=== PATIENT | male | born 1990 | race Caucasian/White ===

== ENCOUNTER 2016-05-05 18:07 | Emergency (ER) | payer BC, OTHER ==
[~2016-05-05] VITALS: Ht 193 cm; Wt 103.1 kg
[2016-05-05 18:18] VITALS: TEMP 37; Ht 193 cm; Wt 103.1 kg
[2016-05-05] MEDS ORDERED: XYLOCAINE 1%/SOD BICARB 20 ML VIAL INFIL ONE (18:45)
[2016-05-05] MEDS ORDERED: SULF800T23 PO (19:11)
[2016-05-05] MEDS ORDERED: CEPH500C2 PO (19:11)
--- NOTE | 2016-05-05 19:11 | EMERGENCY ROOM VISIT NOTE ---
ED Visit Note First contact with patient: 18:23 CHIEF COMPLAINT: Painful lump in the right suprapubic region times one to 2 days HISTORY OF PRESENT ILLNESS: Patient is an otherwise healthy 25-year-old white male who presents to the emergency department accompanied by his girlfriend for evaluation of a painful lump that he noticed in the right suprapubic region yesterday. He states that he has some soreness in the area and initially thought that he had an ingrown hair. He then noticed a hard, tender lump. He was doing some reading on the Internet and thought that he might have a hernia. The area has become red and swollen. It radiates discomfort to his lower abdomen and his right inner thigh. He denies any drainage or discharge from the area. No difficulty urinating or moving his bowels. He denies any fever. No prior history of skin infections or abscesses. REVIEW OF SYSTEMS: Review of systems as per HPI. All other systems reviewed were negative. At least 6 systems reviewed. PMH: Electronic medical records are reviewed and summarized as above/below. See Problem List. His tetanus is up-to-date. SOCIAL HISTORY: Patient lives at home with his girlfriend and daughter. Smokes one pack of cigarettes daily.. PHYSICAL EXAM: Vital Signs: Reviewed Nurse's notes. CONSTITUTIONAL: Patient is a well-appearing 25-year-old white male who is awake and alert and in no acute distress. INTEGUMENTARY: There is an indurated area in the right suprapubic area which measures about 2 x 5 cm. It is erythematous, indurated, with central fluctuance.. No pointing or drainage. There is a zone of inflammation around it buy no lymphangitis. EMERGENCY DEPARTMENT COURSE: Patient was seen and assessed as above. His old records were reviewed. He has a small, localized subcutaneous abscess in the right suprapubic region. Differential diagnoses include abscess, sebaceous cyst , lipoma, and others. He certainly does not appear to have any groin or inguinal involvement right into the perineal area, involving the penis or the scrotum. I&D procedure was discussed with the patient and he was agreeable to proceed. I&D was performed by Hilario Villalba PA-C. Please refer to his separate dictation for procedure note. Patient tolerated the procedure well. Culture was sent and is pending. He will be placed on Keflex and Bactrim pending culture results. Wound care measures were discussed. The patient was discharged home into the care of his girlfriend in good condition. He rated his discomfort a 2/10 at discharge. Current/Historical Medications Scheduled Cephalexin Monohydrate (Keflex), 500 MG PO QID Sulfa/Trimethoprim (Bactrim Ds 800MG/160MG), 1 TAB PO BID Allergies Uncoded Allergies: NKDA (Allergy, Unknown, 03/29/02) Vital Signs Date Time Temp Pulse Resp B/P Pulse Ox O2 Delivery O2 Flow Rate FiO2 05/05/16 19:53 71 16 146/83 97 Room Air 05/05/16 18:18 37.0 66 18 149/91 99 Room Air Departure Information Impression Primary Impression: Skin abscess Prescriptions Cephalexin Monohydrate (KEFLEX) 500 Mg Cap 500 MG PO QID for 7 Days, #28 CAP Prov: Pepper Lujan PA 05/05/16 Sulfa/Trimethoprim (Bactrim Ds 800MG/160MG) Tab 1 TAB PO BID for 7 Days, #14 TAB Prov: Pepper Lujan PA 05/05/16 Referrals No Doctor, Assigned (PCP) Patient Instructions My [facility] Additional Instructions Cephalexin(Keflex) 500mg: Take one pill four times daily for 7 days for your skin infection. All antibiotics can cause diarrhea. If this occurs and you feel worse or it does not resolve in 1-2 days follow up with your doctor or return to the Emergency Department as this could be signs of serious underlying problems. Any medication can cause an allergic reaction, stop the pills immediately and return to the ER for rash, hives, breathing difficulties, or swelling. Trimethoprim-Sulfamethoxazole(Bactrim DS): Take one pill twice daily for 7 days for your skin infection. All antibiotics can cause diarrhea. If this occurs and you feel worse or it does not resolve in 1-2 days follow up with your doctor or return to the Emergency Department as this could be signs of serious underlying problems. Any medication can cause an allergic reaction, stop the pills immediately and return to the ER for rash, hives, breathing difficulties, or swelling. Ibuprofen(Motrin, Advil) may be used for fever or pain. Use 600mg every six hours as needed. Take with food. Avoid using more than 2400mg in a 24 hour period. Do not use 2400mg per day for more than three consecutive days without physician direction. Prolonged inappropriate use can lead to stomach upset or ulcers. (AND/OR) Acetaminophen(Tylenol) may be used for fever or pain. Use 1000mg every six hours as needed. Avoid using more than 3000mg in a 24 hour period. Warm compresses to the affected area 4 times daily for 15-20 minutes. Dressing changes daily, more often if it becomes saturated or soiled. May shower, became for to not remove the packing material when bathing or when changing the dressing. Rest and drink plenty of fluids. Continue current medications. Return to the ER in 48 hours for packing removal, immediately for severe pain, persistent fevers, spreading redness, or any worsening of your condition. Follow up with your primary physician within 2-3 days for a recheck of the current condition.
--- NOTE | 2016-05-05 19:16 | EMERGENCY ROOM VISIT NOTE ---
ED Visit Note 25-year-old male who I was asked by Althea Morales PA-C to perform an I&D procedure as she is unable to do so currently because she is currently wearing a splint, and unable to perform septic technique. Please see her dictation for further workup and final disposition. PROCEDURE NOTE: Patient provided verbal consent for I&D procedure under local anesthesia. Using buffered 1% lidocaine without epinephrine, good local anesthesia was administered over the central area of fluctuance. The area was then painted with iodine and allowed to dry. Sterile field was created. Using a #11 scalpel, a 1 cm incision was made. The patient did have immediate purulent discharge with only approximately 2 mL of purulence expressed. Underlying loculations were further opened with needle drivers. Cultures were collected, then the wound was irrigated with approximately 100 mL of normal saline. 0.25 inch packing was then loosely placed in all recesses of the wound. A bacitracin and bulky dressing was applied. The patient tolerated the procedure well without any blood loss. DIAGNOSIS: Groin abscess
[2016-05-05 19:53] VITALS: BP 146/83; PULSE 71; O2SAT 97
== END 2016-05-05 19:54 | disposition home or self-care (01) ==
LOC: C.EDB 18:09 → C.EDD 19:54
DX: L02.214 Cutaneous abscess of groin (principal); F17.200 Nicotine dependence, unspecified, uncomplicated